=== PATIENT | female | born 1935 | race Two or more races ===

== ENCOUNTER 2017-11-08 11:33 | Emergency (ER) | payer MEDICARE, MEDICAID ==
[~2017-11-08] VITALS: Ht 154.9 cm; Wt 70.8 kg
[~2017-11-08 11:33] MED LIST: ALENDRONATE SOD10 MG ORAL; BYSTOLIC2.5 MG ORAL; BYSTOLIC5 MG ORAL; COLCHICINE25 GM MC; CREON DR 12,001 EACH PO; ERGOCALCIFEROL1 GM MC; LYRICA75 M1 ORAL; MIRTAZAPINE7.5 MG ORAL; NAPROXEN25 G1 MC; OMEPRAZOLE10 M1 ORAL; PATANOL1 DROP OD; QUINAPRIL HCL5 MG PO; SIMVASTATIN5 MG ORAL; VITAMIN D1000 UNI1 ORAL; ZETIA10 MG ORAL
[2017-11-08] MEDS ORDERED: Acetaminophen 500mg (ES) tab ORAL ONE (12:00)
[2017-11-08] MEDS ORDERED: TYLENOL325 MG ORAL (12:53)
[2017-11-08 13:30] VITALS: BP 154/72
--- NOTE | 2017-11-09 13:24 | Diagnostic Imaging Report ---
Indication: Pain Comparison: None Findings: Two views of the right tibia and fibula were obtained. No acute fracture, malalignment, or periosteal reaction are identified. Bones are osteopenic. Soft tissues are unremarkable. Impression: Negative examination of the tibia and fibula
--- NOTE | 2017-11-09 19:55 | Emergency Room Report ---
History of Present Illness General Chief Complaint: Lower Extremity Injury Source: Patient Present Illness HPI Patient is an 81 year-old female presented after increased pain to her right calf. The patient reportedly had fallen after a car door hit her in the calf. She reported having some pain to her right calf. She denied any pain to her ankle or knee or hip. She had previous he been ambulatory. She reports having a walker at home. She denies any numbness or tingling to her extremity. Injury occurred prior to arrival Allergies: Coded Allergies: PENICILLINS (Verified Allergy, Unknown, 11/08/17) Patient History Past Medical History: see triage record Reviewed Nursing Documentation: PMH: Agreed, PSxH: Agreed Nursing Documentation-PMH Hx Hypertension: Yes Hx Cancer: No Hx Gastrointestinal Problems: No Hx Neurological Problems: No Review of Systems All Other Systems: negative except mentioned in HPI Physical Exam Vital Signs Date Time Temp Pulse Resp B/P (MAP) Pulse Ox O2 Delivery O2 Flow Rate FiO2 11/08/17 11:42 98.2 70 16 185/77 96 Room Air General Appearance: well appearing, no apparent distress, alert, GCS 15 Head: normocephalic, atraumatic ENT: hearing grossly normal, normal voice Neck: full range of motion, supple Respiratory: no respiratory distress, speaking full sentences Cardiovascular #1: normal inspection Gastrointestinal: normal inspection Musculoskeletal: calf tenderness, decreased range of mation, other - no achilles tendon tenderness, no hematoma noted Neurologic: normal inspection, alert, oriented x3, responsive, safety lamp keeper III-XII nml as tested, normal gait Psychiatric: mood/affect normal Skin: no rash Medical Decision Making Diagnostic Impression: Primary Impression: Contusion of right calf ER Course Patient presented for right leg pain. Differential diagnosis included was not limited to fracture, vascular injury, Achilles rupture, DVT, cellulitis, gastrocnemius rupture. Patient's benign exam and does not appear to require any laboratory testing at this time. x-ray imaging of the right tib-fib 3 views showed normal bony alignment without evident fracture. The patient is advised to follow up with primary care doctor in 1-2 days. Patient is advised to return if any worsening condition or if any changes in status that are concerning. This report is dictated with [email or web address] hose wrapper software which may occasionally lead to discrepancies related to use of this software. Last Vital Signs Date Time Temp Pulse Resp B/P (MAP) Pulse Ox O2 Delivery O2 Flow Rate FiO2 11/08/17 13:30 98.3 70 18 154/72 100 Room Air Status: improved Disposition: HOME, SELF-CARE Condition: Stable Scripts Acetaminophen (Tylenol) 325 Mg Tablet 650 MG ORAL Q6H Y for Prn Pain/Headache/Temp > 101, #30 TAB 0 Refills Prov: Hang Louise 11/08/17 Referrals: NOT CHOSEN IPA/MD,REFERRING (PCP) Patient Instructions: Contusion Hang Louise Nov 09, 2017 19:55
== END 2017-11-08 13:30 | disposition home or self-care (01) ==
LOC: EMR 13:00
DX: S80.11XA Contusion of right lower leg, initial encounter (principal); W22.8XXA Striking against or struck by other objects, initial encounter; Y92.810 Car as the place of occurrence of the external cause; I10 Essential (primary) hypertension; Z88.0 Allergy status to penicillin
CPT/HCPCS: 99283